=== PATIENT | male | born 1960 | race Caucasian/White ===

== ENCOUNTER 2021-01-30 06:57 | Inpatient (IN) | payer MEDICARE, SELFPAY ==
[2021-01-30] VITALS (16 sets, daily range): BP systolic 115–144; BP diastolic 58–96; PULSE 70–112; RESP 12–20; TEMP 36.2–37.1; O2SAT 95–100; BMI 22.7; BMI 22.4
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
[2021-01-30 07:16] LABS: Allen Test Positive; Base Excess 0 mmol/L (-2 to +2); Blood Gas Specimen Type ART; O2 Delivery Device NRB; PO2 157 mmHG (75-100); SITE L Radial; SO2 99 % (95-99); Total Carbon Dioxide 26 mmol/L; pCO2 43.9 mmHg (35-45); pH 7.36 (7.35-7.45)
[2021-01-30] MEDS: Diphth,Pertuss(Acell),Tet Vac 0.5 ML Vial IM (07:16)
[2021-01-30] MEDS: MethylPREDNISolone 125 MG/2 ML Vial IV (07:16)
[2021-01-30 07:18] LABS: Absolute Lymphocyte Count 1.81 X10^3/uL (0.83-4.51); Absolute Neutrophil Count 6.6 X10^3/uL (2.0-7.7); Basophil# 0.09 X10^3/uL; Basophil% 0.9 % (0-1); Eosinophil# 0.39 X10^3/uL; Hematocrit 45.7 % (40-54); Hemoglobin 14.8 g/dL (13.0-16.5); Lymphocyte # 1.81 X10^3/ul (0.83-4.51); Lymphocyte % 18.4 % (19-41); Mean Corp Hgb Conc 32.4 g/dL (32-36); Mean Corpuscular Hgb 31.2 pg (27.0-32.0); Mean Corpuscular Volume 96.2 fL (80-94); Monocyte# 0.88 X10^3/uL; Monocyte% 8.9 % (0-10); NRBC Flagged by Analyzer 0 % (0-5); Neutrophil # 6.63 X10^3/uL (2.7-7.7); Neutrophil % 67.3 % (47-70); Platelet Count 292 K/mm3 (150-450); RBC Distribution Width CV 12.4 % (11.6-14.6); RBC Distribution Width SD 44.4 fl (35.1-43.9); Red Blood Count 4.75 M/mm3 (4.6-6.2); White Blood Count 9.9 K/mm3 (4.4-11.0)
[2021-01-30] MEDS: Albuterol 2.5 MG/3 ML VIAL.NEB. INHALATION ×3 (07:18)
[2021-01-30 07:29] LABS: Carboxyhemoglobin Frac (CO) 14.2 % (0.0-1.5)
[2021-01-30 07:31] LABS: Partial Thromboplast Time 26.7 Seconds (24.1-36.2); Prothrombin Time (Protime)PT. 12.5 SECONDS (11.7-14.9)
[2021-01-30 07:44] LABS: Lactic Acid 2.1 mmol/L (0.4-1.9)
[2021-01-30 08:05] LABS: ALB/GLOB Ratio 0.9 RATIO (0.9-2.4); AST(SGOT) 21 U/L (15-37); Alanine Aminotransfer ALT/SGPT 22 U/L (16-61); Albumin, Serum 3.6 g/dL (3.2-5.0); Alkaline Phosphatase 92 U/L (45-117); Anion Gap 8 (5-15); BUN 11 mg/dL (7-18); BUN/Creat Ratio 10.6 RATIO (10-20); Calcium,Total 9.1 mg/dL (8.5-10.1); Chloride 108 mmol/L (98-107); Creatinine, Serum 1.04 mg/dL (0.70-1.30); EST Glomerular Filtration Rate 77 mL/min (>60); Est Glom Filt Rate - Afr Amer 93 mL/min (>60); Estimated Creatinine Clearance 72.54 ml/min; Globulin 3.8 g/dL (2.2-4.2); Glucose 125 mg/dL (74-106); Potassium 3.5 mmol/L (3.5-5.1); Protein, Total 7.4 g/dL (6.4-8.2); Sodium Level 141 mmol/L (136-145); Troponin-I HS 14 pg/mL (3.0-78.0)
[2021-01-30] MEDS: oxyCODONE 5 MG Tablet 10 MG PO ×2 (08:13→20:01)
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
[2021-01-30] MEDS: Pregabalin 50 MG Capsule 100 MG PO ×3 (09:31→21:24)
[2021-01-30 11:20] LABS: Reflex Lactate? Y
[2021-01-30] MEDS: 0.9% Normal Saline 1,000 ML 125 ML IV ×2 (11:35→22:49)
[2021-01-30 11:56] LABS: Allen Test Positive; Base Excess -1 mmol/L (-2 to +2); Blood Gas Specimen Type ART; O2 Delivery Device NRB; PO2 113 mmHG (75-100); SITE L Radial; SO2 98 % (95-99); Total Carbon Dioxide 26 mmol/L; pCO2 44.7 mmHg (35-45); pH 7.35 (7.35-7.45)
[2021-01-30 11:59] LABS: Carboxyhemoglobin Frac (CO) 4.2 % (0.0-1.5); Methemoglobin 0.6 % (0.0-1.5); OXYGEN CONTENT OF HEMOGLOBIN 14.4 VOL%O2 (7.5-17.5); OXYHEMOGLOBIN FRACTION 72.3 % (40-90)
[2021-01-30 12:03] LABS: Lactic Acid 1.5 mmol/L (0.4-1.9)
[2021-01-30 12:16] LABS: Troponin-I HS 39 pg/mL (3.0-78.0)
[2021-01-30] MEDS: Baclofen 10 MG Tablet 20 MG PO ×2 (13:32→21:24)
[2021-01-30 13:59] LABS: Troponin-I HS 36 pg/mL (3.0-78.0)
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
[2021-01-30] MEDS: Ipratropium/Albuterol Sulfate 3 ML AMPUL.NEB INHALATION ×2 (15:03→18:41)
[2021-01-31] VITALS (11 sets, daily range): BP systolic 108–129; BP diastolic 60–67; PULSE 60–79; RESP 12–19; TEMP 36.5–36.6; O2SAT 86–99
[2021-01-31] MEDS: oxyCODONE 5 MG Tablet 10 MG PO ×3 (02:10→15:07)
[2021-01-31] MEDS: Acetaminophen 325 MG Tablet 650 MG PO ×2 (02:10→12:45)
[2021-01-31] MEDS: Pregabalin 50 MG Capsule 100 MG PO ×2 (05:10→14:10)
[2021-01-31] MEDS: Baclofen 10 MG Tablet 20 MG PO ×2 (05:11→14:10)
[2021-01-31] MEDS: Ipratropium/Albuterol Sulfate 3 ML AMPUL.NEB INHALATION (06:42)
[2021-01-31 07:21] LABS: Absolute Lymphocyte Count 0.58 X10^3/uL (0.83-4.51); Absolute Neutrophil Count 15.3 X10^3/uL (2.0-7.7); Basophil# 0.02 X10^3/uL; Basophil% 0.1 % (0-1); Hematocrit 42.4 % (40-54); Hemoglobin 13.8 g/dL (13.0-16.5); Lymphocyte # 0.58 X10^3/ul (0.83-4.51); Lymphocyte % 3.5 % (19-41); Mean Corp Hgb Conc 32.5 g/dL (32-36); Mean Corpuscular Hgb 31.1 pg (27.0-32.0); Mean Corpuscular Volume 95.5 fL (80-94); Mean Platelet Vol. 9.9 fl (6.2-12.0); Monocyte# 0.44 X10^3/uL; Monocyte% 2.7 % (0-10); NRBC Flagged by Analyzer 0 % (0-5); Neutrophil # 15.28 X10^3/uL (2.7-7.7); Neutrophil % 92.7 % (47-70); POSITIVE DIFFERENTIAL YES; Platelet Count 287 K/mm3 (150-450); RBC Distribution Width CV 12.7 % (11.6-14.6); Red Blood Count 4.44 M/mm3 (4.6-6.2); White Blood Count 16.5 K/mm3 (4.4-11.0)
[2021-01-31 07:22] LABS: Differential Indicated SCAN CRITERIA MET
[2021-01-31 07:28] LABS: Anion Gap 6 (5-15); BUN 14 mg/dL (7-18); BUN/Creat Ratio 18.3 RATIO (10-20); Calcium,Total 9.2 mg/dL (8.5-10.1); Chloride 110 mmol/L (98-107); Creatinine, Serum 0.77 mg/dL (0.70-1.30); EST Glomerular Filtration Rate 110 mL/min (>60); Est Glom Filt Rate - Afr Amer 133 mL/min (>60); Estimated Creatinine Clearance 96.34 ml/min; Glucose 134 mg/dL (74-106); Potassium 4.3 mmol/L (3.5-5.1); Sodium Level 141 mmol/L (136-145)
[2021-01-31] MEDS: Enoxaparin 40 MG/0.4 ML Syringe SC (08:06)
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
--- NOTE | 2021-01-31 11:33 | PCS.PANDOC ---
PANDEMIC DOCUMENTATION INITIATED: Date: 01/03/2021 Time: 190
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
--- NOTE | 2021-01-31 12:45 | CASEMGMT ---
MAGDALENO received a call from Trey with [employer]. He said he has been communicating with patient's sister. He said she was given a card with money on it. He asked what else patient needs. MAGDALENO told him patient needs O2 and didn't know if that is something they help with. He said he would have a nurse call MAGDALENO. MAGDALENO let patient know above and that MAGDALENO will keep him updated. Lily MICHELLE
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
--- NOTE | 2021-01-31 15:07 | PHA.DC.MC ---
Pharmacy Service has performed discharge medication reconciliation and counseling for this patient. 1. ALBUTEROL HFA 90MCG/ACTUATION 2PUFFS Q6H PRN SOB/WHEEZING 2. PREDNISONE 40MG PO DAILY X 5 DAYS The patient's discharge medication list was reviewed for discrepancies and discrepancies were resolved. Home Medications albuterol sulfate [ProAir HFA] 2 puff INHALATION Q6H PRN #8.5 g 01/31/21 baclofen 20 mg PO TID 5 Days #15 tab 01/31/21 oxycodone-acetaminophen [Percocet] 1 tab PO 5X/DAY 3 Days #15 tab 01/31/21 prednisone 40 mg PO DAILY #10 tab 01/31/21 pregabalin [Lyrica] 100 mg PO TID 7 Days #21 cap 01/31/21 The patient was counseled on the following discharge medications and changes in medications for homegoing were reviewed. The Reason for Use, instructions for use, and potential side effects were reviewed for all new medications. The patient's questions regarding all of their medications were answered. The patient was able to verbally demonstrate an understanding of their discharge medications.
--- NOTE | 2021-01-31 15:21 | CASEMGMT ---
SW received a call from Mariana, patient's sister. She said she has the [place] card and it is like a [employer] card. She will call [facility] pharmacy and pay for the meds and have them delivered to his room. Lily MICHELLE
--- NOTE | 2021-01-31 15:30 | CASEMGMT ---
MAGDALENO spoke with Adrienne from [employer] and patient qualifies for a discount so his cost would be $106.42. MAGDALENO notified Erica, nurse from [employer] of the cost. She is trying to obtain the cost of patient's meds from [facility] pharmacy so she can add that to the card. MAGDALENO called patient's sister and obtained the number on the [employer] card. MAGDALENO called Adrienne with [employer] and gave her the card number. Patient will go home with his daughter, Elsa who lives in [place]. MAGDALENO will call her and make sure she knows to call [facility] when patient gets home so they can deliver the concentrator. Lily Chisholm [employer]
--- NOTE | 2021-01-31 16:05 | NURSING ---
This RN reviewed SN charting
== END 2021-01-31 17:36 | disposition home or self-care (01) | DRG 189 ==
LOC: ED 08:07 → PCU 10:08
PROVIDERS: Admitting Provider Student in an Organized Health Care Education/Training Program; Emergency Provider Emergency Medicine
DX: J96.01 Acute respiratory failure with hypoxia (principal); E87.2 Acidosis; J44.1 Chronic obstructive pulmonary disease with (acute) exacerbation; J70.5 Respiratory conditions due to smoke inhalation; T59.811A Toxic effect of smoke, accidental (unintentional), initial encounter; T58.8X1A Toxic effect of carbon monoxide from other source, accidental (unintentional), initial encounter; J98.01 Acute bronchospasm; S92.352A Displaced fracture of fifth metatarsal bone, left foot, initial encounter for closed fracture; X00.0XXA Exposure to flames in uncontrolled fire in building or structure, initial encounter; X00.5XXA Jump from burning building or structure in uncontrolled fire, initial encounter; Y93.9 Activity, unspecified; Y92.009 Unspecified place in unspecified non-institutional (private) residence as the place of occurrence of the external cause; Y99.9 Unspecified external cause status; Z20.822 Contact with and (suspected) exposure to COVID-19; G89.4 Chronic pain syndrome; F17.210 Nicotine dependence, cigarettes, uncomplicated
CPT/HCPCS: 29515; 36415; 36600; 71045; 73630; 80048; 80053; 82375; 82803; 83605; 84484; 85025; 85610; 85730; 87426; 90715; 93005; 94640; 97162; 97166; 99251; 99285; 99406; J7030; A4216; G0463